=== PATIENT | male | born 2000 | race Caucasian/White ===

== ENCOUNTER 2023-09-15 04:07 | Emergency (ER) | payer BC ==
[~2023-09-15] VITALS: Ht 172.7 cm; Wt 71.7 kg
[~2023-09-15 04:07] MED LIST: FAMO40TA7 PO; FLUT1DIS INH; HYDR-3917 PO; IBUP-1971 PO; LORA10TA68 PO
[2023-09-15 04:27] VITALS: BP_SYST 151; PULSE 79; RESP 16; TEMP 97.9; O2SAT 99
[2023-09-15] MEDS ORDERED: CEPH250C PO (05:10)
[2023-09-15 05:18] VITALS: BP_SYST 162; PULSE 79; RESP 16; TEMP 97.9; O2SAT 99
== END 2023-09-15 05:18 | disposition home or self-care (01) ==
LOC: SED 04:07
DX: R04.0 Epistaxis (principal); J45.909 Unspecified asthma, uncomplicated; Z79.899 Other long term (current) drug therapy
CPT/HCPCS: 99284